=== PATIENT | male | born 1970 | race Caucasian/White ===

== ENCOUNTER 2017-01-18 21:53 | Emergency (ER) | payer BC ==
[~2017-01-18] VITALS: Ht 172.7 cm; Wt 71.0 kg
[2017-01-18 22:18] VITALS: BP 133/85; PULSE 79; RESP 16; TEMP 98.6; O2SAT 97
[2017-01-18] MEDS ORDERED: TYLE325T PO (23:23)
[2017-01-18] MEDS ORDERED: ORPHENADRINE INJ 60 MG/2 ML AMP IM ONE (23:45)
[2017-01-18] MEDS ORDERED: KETOROLAC TROMETHAMINE 60 MG/2 ML (IM) VIAL IM ONE (23:45)
[2017-01-19 00:32] VITALS: BP 117/76; PULSE 64; RESP 16; O2SAT 97
[2017-01-19] MEDS ORDERED: IBUP-232 PO (00:58)
[2017-01-19] MEDS ORDERED: ROBA750T PO (00:58)
[2017-01-19] MEDS ORDERED: PERC5TAB12 PO (00:58)
[2017-01-19] MEDS ORDERED: predniSONE 50 MG TAB PO ONE (01:00)
--- NOTE | 2017-01-19 01:01 | PD ---
HPI Chief Complaint: Back/ Neck Pain or Injury Time Seen by Provider: 23:34 Travel History International Travel<30 days: No Contact w/Intl Traveler<30days: No Traveled to known affect area: No History of Present Illness HPI 46-year-old male presents to the emergency department for complaint of low back pain after twisting to get out of his car. Patient [place]. Patient reports that in June she sustained a significant injury to the spine requiring neck surgery and associated compression fractures of the low back. Patient does not have any back surgery. Patient has been going through physical therapy and doing well without symptoms. Patient reports this evening as he was getting out of his vehicle he does not recall specific twisting injury but thinks he must have accidentally twisted his back because as he was walking to his destination he developed a spasm in the lower back causing him to have to stop to collect himself due to the associated pain. Patient states that since that time he has had to walk somewhat stiffly to keep moving his lower back. Patient denies any associated low to me numbness tingling or weakness bladder or bowel dysfunction or saddle anesthesia. Patient was able to drive back to his residence and arranged to take a taxi to the hospital. Patient is visiting from out of state and is here on vacation and is planning on returning home tomorrow. Patient states that he did take Tylenol prior to arrival to the emergency department. Patient denies any recent fall or injury. Patient does not recall specific event of lifting anything heavy while loading and unloading his vehicle. The patient rates his pain 8/10 in intensity. Patient also denies any abdominal pain. No report of nausea, vomiting, diarrhea, dysuria, fever, or chills. FORMERLY [facility], [facility] Past Medical History Narrative Medical Cervical fusion thoracolumbar compression fractures status post skiing accident alcohol abuse in the past tobacco use: Nursing notes reviewed Diminished Hearing: No Tetanus Vaccination: < 5 Years Influenza Vaccination: No Past Surgical History Tonsillectomy: Yes Social History Alcohol Use: No Tobacco Use: Yes (currently using nicoderm patch. Patient uses chewing tabacco ) Substance Use: No Allergies-Medications (Allergen,Severity, Reaction): Coded Allergies: Penicillin (Verified Allergy, Mild, Rash, 01/18/17) Reported Meds & Prescriptions Reported Meds & Active Scripts Active Ibuprofen 600 Mg Tab 600 Mg PO Q6H PRN Percocet (Oxycodone-Acetaminophen) 5-325 mg Tab 1-2 Tab PO Q6H PRN Robaxin (Methocarbamol) 750 Mg Tab 750 Mg PO Q6HR Reported Tylenol (Acetaminophen) 325 Mg Tab 650 Mg PO Q4H PRN Review of Systems Except as stated in HPI: all other systems reviewed are Neg General / Constitutional: No: Fever, Chills HENT: No: Congestion Cardiovascular: No: Chest Pain or Discomfort Respiratory: No: Shortness of Breath Gastrointestinal: No: Abdominal Pain Genitourinary: No: Flank Pain Musculoskeletal: Positive: Myalgias, Arthralgias, Limited ROM, Pain Skin: No Rash Neurologic: No: Weakness (low back pain), Paresthesia Psychiatric: Positive: Anxiety Hematologic/Lymphatic: No: Lymph Node Enlargement Physical Exam Narrative GENERAL: Well-developed well-nourished now no acute distress no respiratory distress SKIN: Warm and dry. HEAD: Normocephalic. EYES: No scleral icterus. No injection or drainage. NECK: Supple, trachea midline. No JVD or lymphadenopathy. CARDIOVASCULAR: Regular rate and rhythm without murmurs, gallops, or rubs. RESPIRATORY: Breath sounds equal bilaterally. No accessory muscle use. GASTROINTESTINAL: Abdomen soft, non-tender, nondistended. MUSCULOSKELETAL: No cyanosis, or edema. BACK: Nontender without obvious deformity mild tenderness and spasm to palpation to the lumbar paravertebral musculature. Also tenderness over the left SI joint. No CVA tenderness. DTRs 2+ and symmetric without clonus; sensory exam intact; motor strength 5 over 5. Patient able to ambulate in the emergency department exam room. Data Data Last Documented VS Vital Signs Date Time Temp Pulse Resp B/P Pulse Ox O2 Delivery O2 Flow Rate FiO2 01/19/17 01:30 66 16 145/80 97 01/19/17 00:32 Room Air 01/18/17 22:18 98.6 Orders Ketorolac Inj (Toradol Inj) (01/18/17 23:45) Orphenadrine Inj (Norflex Inj) (01/18/17 23:45) Ice/Cold Pack (01/18/17 23:34) Prednisone (Deltasone) (01/19/17 01:00) MDM Medical Decision Making Medical Screen Exam Complete: Yes Emergency Medical Condition: Yes Medical Record Reviewed: Yes Differential Diagnosis Exacerbation low back pain, sciatica, lumbar radiculopathy; also to consider cauda equina syndrome Narrative Course 46-year-old male without recent known injury noted sudden onset of low back pain after getting out of his car and thinks he may have twisted his lower back no new lower extremity numbness tingling weakness and no bladder or bowel dysfunction as well as no saddle anesthesia. Patient's had no other injury or fall since his initial injury June 2016 at which time he had a neck injury requiring cervical fusion and compression fracture of the lower back. Patient' s had no subsequent injury or fall and has been doing well in physical therapy. Patient is visiting from out of state and is returning back home tomorrow. Patient is taking acetaminophen without symptomatic relief. Patient is not desirous of imaging studies at this time and will be given injection of Toradol 60 mg IM and Robaxin 60 mg IM as his exam does not identify any neurologic deficit. Diagnosis Primary Impression: Acute exacerbation of chronic low back pain Referrals: Primary Care Physician 2 days Patient Instructions: General Instructions Additional Instructions: Apply moist heat intermittently to low back Take medications as prescribed Return to the emergency for free concerns or change in condition Follow-up with your primary care provider/neurologist as scheduled as planned up to return back home from your vacation in [place] Increase fluid hydration Med/Other Pt SpecificInfo: Prescription(s) given Scripts Ibuprofen 600 Mg Qya151 Mg PO Q6H PRN (Pain/Inflammation) #14 TAB Ref 0 Prov:Vicki Solorzano MD 01/19/17 Oxycodone-Acetaminophen (Percocet)5-325 mg Tab1-2 Tab PO Q6H PRN (PAIN) #6 TAB Ref 0 Prov:Vicki Solorzano MD 01/19/17 Methocarbamol (Robaxin)750 Mg [id number] Mg PO Q6HR #10 TAB Ref 0 Prov:Vicki Solorzano MD 01/19/17 Disposition: 01 DISCHARGE HOME Condition: Stable Vicki Solorzano MD Jan 19, 2017 01:01
[2017-01-19 01:11] VITALS: RESP 16
[2017-01-19 01:30] VITALS: BP 145/80
== END 2017-01-19 01:33 | disposition home or self-care (01) ==
LOC: PHED 21:53
DX: M54.5 Low back pain (principal); G89.29 Other chronic pain; F17.220 Nicotine dependence, chewing tobacco, uncomplicated
CPT/HCPCS: 96372; 99284; J1885; J2360; J7512